=== PATIENT | female | born 1945 | race Two or more races ===

== ENCOUNTER 2025-07-08 11:56 | Inpatient (IN) | payer OTHER ==
[~2025-07-08] VITALS: Ht 121.9 cm; Wt 72.6 kg
--- NOTE | 2025-07-08 12:34 | NUR ---
SE RECIBE PT FEMINA ALERTA Y ORIENTADA, AL MOMENTO PACIENTE REFIERE DOLOR ABDOMINAL, SE LE OBSERVA ABDOMEN DISTENDIDO, SE LE TRACI S/V. AL MOMENTO PACIENTE ES COLOCADO EN CAM 13. PTE EN ESPERA DE EVALUACION MEDICA.
[2025-07-08] MEDS ORDERED: FAMOTIDINE/PF 20 MG/2 ML VIAL IV STA (13:39)
[2025-07-08] MEDS ORDERED: ONDANSETRON HCL 2 MG/ML VIAL IV STA (13:39)
[2025-07-08] MEDS ORDERED: MORPHINE SULFATE 2 MG/ML SYRINGE IV STA ×2 (13:39→22:05)
[2025-07-08] MEDS ORDERED: 0.9 % SODIUM CHLORIDE 1,000 ML IV STA (13:40)
--- NOTE | 2025-07-08 15:16 | NUR ---
PACIENTE FEMINA, SE CANALIZA EN ANTEBRAZO DERECHO CON ANGIO NUM 18, SE ADMINSTRA MORFINA PARA EL DOLOR SHELL ORDEN MEDICA, SE ENTREGA PARA CONTINUAR CON EL TRATAMIENTO.
[2025-07-08] MEDS ORDERED: FAMOTIDINE/PF 20 MG/2 ML VIAL ONE (16:07)
[2025-07-08] MEDS ORDERED: ONDANSETRON HCL 2 MG/ML VIAL ONE (16:07)
--- NOTE | 2025-07-08 16:22 | NUR ---
SE ORIENTA A PACIENTE SOBRE TRATAMIENTO MEDICO, REFIERE ENTENDER. SE REALIZAN MUESTRAS DE LABORATORIO BAJO MEDIDAS ASEPTICAS. SE ADMINISTRAN MEDICAMENTOS SHELL ORDEN MEDICA. SE COOORDINA PRADIP X Y CT. PENDIENTE RE-EVALUACION MEDICA.
[2025-07-08 16:37] LABS: BASO % 0.4 % (0.1-1.2); EOS # 0.00 (0.04-0.54); EOS % 0.0 % (0.7-7.0); LYMPH # 0.78 (1.18-3.74); LYMPH % 9.4 % (19.3-53.1); MEAN PLATELET VOLUME 11.10 fl (9.4-12.4); MONO # 0.49 (0.24-0.82); MONO % 5.9 % (4.7-12.5); NEUT # 6.94 (1.56-6.13); NEUT % 84.1 % (34.0-71.1); RED CELL DISTRIBUTION WIDTH 14.3 % (11.6-14.4)
[2025-07-08 16:46] LABS: ERYTHROCYTE SEDIMENTATION RATE > 130 mm/hr (0-30)
[2025-07-08 16:49] LABS: INR 1.26
[2025-07-08 17:02] LABS: ALT/SGPT 12.0 U/L (12-78); AST/SGOT 19.0 U/L (15-37); BILIRUBIN TOTAL 0.52 mg/dL (0.3-1.2); BUN CREA RATIO 20.0 (7.0-25.0); CREATININE SERUM 1.99 mg/dL (0.55-1.02); GFR 24.3; GLOBULINA 4.9 G/DL (2.4-3.5); GLUCOSE FASTING 132.0 mg/dL (65-100); OSMOLALITY SERUM 293.0 MOSM/KG (275-295)
[2025-07-08 17:10] LABS: BAND MAN 5.0 %; LYMPHOCYTE MAN 12.0 %; MONOCYTE MAN 6.0 %; NEUTROPHILS MAN 76.0 %
[2025-07-08] MEDS ORDERED: MORPHINE SULFATE 4 MG/ML CARTRIDGE IV STA (21:20)
[2025-07-08 22:19] LABS: URINE APPEARANCE Cloudy; URINE BILIRRUBIN Small (NEGATIVE); URINE BLOOD Negative; URINE COLOR Dark Yellow; URINE GLUCOSE Negative (NEGATIVE); URINE KETONE 15 (NEGATIVE); URINE LEUKOCYTE Trace; URINE NITRATE Negative; URINE PROTEIN 30 (NEGATIVE); URINE UROBILINOGEN 1.0 E.U./dl
[2025-07-08] MEDS ORDERED: FAMOTIDINE/PF 20 MG in 0.9 % SODIUM CHLORIDE 8 ML IV PUSH SCH (22:20)
[2025-07-08 22:22] LABS: URINE EPITHELIAL CELLS 73.8 uL (0.0-38.8); URINE RBC 18.9 uL (0.0-20.8); URINE WBC 12.7 uL (0.0-23.2)
[2025-07-08] MEDS ORDERED: CEFTRIAXONE SODIUM 1,000 MG in 0.9 % SODIUM CHLORIDE 100 ML IV SCH (22:22)
[2025-07-08 22:29] LABS: URINE CAST > 21.83 uL (0.0-1.40)
[2025-07-08] MEDS ORDERED: ONDANSETRON HCL 4 MG in 0.9 % SODIUM CHLORIDE 50 ML IV PRN (22:30)
[2025-07-08] MEDS ORDERED: 0.9 % SODIUM CHLORIDE 1,000 ML IV SCH (22:30)
[2025-07-08] MEDS ORDERED: MORPHINE SULFATE 2 MG/ML SYRINGE IV PRN (22:30)
[2025-07-08 22:38] LABS: TYPE CELLS SQUAMOUS; URINE MUCUS SCANT
[2025-07-08 22:40] LABS: URINE CRYSTALS FEW /HPF
[2025-07-09] MEDS ORDERED: FAMOTIDINE/PF 20 MG/2 ML VIAL ONE (00:21)
[2025-07-09] MEDS ORDERED: CEFTRIAXONE SODIUM 1,000 MG VIAL ONE (00:21)
[2025-07-09 03:27] VITALS: BP 109/72; O2SAT 95
[2025-07-09 08:53] VITALS: BP 130/84; O2SAT 95
[2025-07-09] MEDS ORDERED: MORPHINE SULFATE 4 MG/ML CARTRIDGE IV PRN (13:00)
[2025-07-09 15:16] LABS: BASO % 0.2 % (0.1-1.2); EOS # 0.00 (0.04-0.54); EOS % 0.0 % (0.7-7.0); LYMPH # 0.47 (1.18-3.74); LYMPH % 9.3 % (19.3-53.1); MEAN PLATELET VOLUME 11.20 fl (9.4-12.4); MONO # 0.23 (0.24-0.82); MONO % 4.6 % (4.7-12.5); NEUT # 4.15 (1.56-6.13); NEUT % 82.1 % (34.0-71.1); RED CELL DISTRIBUTION WIDTH 14.8 % (11.6-14.4)
[2025-07-09 15:45] LABS: ALT/SGPT 12.0 U/L (12-78); AST/SGOT 28.0 U/L (15-37); BILIRUBIN TOTAL 0.44 mg/dL (0.3-1.2); BUN CREA RATIO 29.0 (7.0-25.0); CREATININE SERUM 1.93 mg/dL (0.55-1.02); GFR 25.17; GLOBULINA 4.2 G/DL (2.4-3.5); GLUCOSE FASTING 156.0 mg/dL (65-100); OSMOLALITY SERUM 296.0 MOSM/KG (275-295)
[2025-07-09 16:00] LABS: COVID-19 AG NEGATIVE (NEGATIVE)
[2025-07-09 16:32] LABS: BAND MAN 3.0 %; EOSINOPHIL MAN 1.0 %; LYMPHOCYTE MAN 13.0 %; MONOCYTE MAN 2.0 %; NEUTROPHILS MAN 81.0 %
[2025-07-09] MEDS ORDERED: METOPROLOL TARTRATE 5MG/5ML AMPUL IV PRN (17:00)
[2025-07-09] MEDS ORDERED: METOPROLOL TARTRATE 5MG/5ML AMPUL IV SCH (17:00)
[2025-07-09 17:15] VITALS: BP 123/76; O2SAT 95
[2025-07-09 23:53] VITALS: BP 112/75; O2SAT 98
[2025-07-10 08:52] VITALS: BP 125/85; O2SAT 98
[2025-07-10 09:28] LABS: BASO % 1.1 % (0.1-1.2); EOS # 0.00 (0.04-0.54); EOS % 0.0 % (0.7-7.0); LYMPH # 1.14 (1.18-3.74); LYMPH % 14.2 % (19.3-53.1); MEAN PLATELET VOLUME 11.80 fl (9.4-12.4); MONO # 0.45 (0.24-0.82); MONO % 5.6 % (4.7-12.5); NEUT # 5.94 (1.56-6.13); NEUT % 74.2 % (34.0-71.1); RED CELL DISTRIBUTION WIDTH 15.0 % (11.6-14.4)
[2025-07-10 09:48] LABS: ALT/SGPT 14.0 U/L (12-78); AST/SGOT 38.0 U/L (15-37); BILIRUBIN TOTAL 0.49 mg/dL (0.3-1.2); BUN CREA RATIO 34.0 (7.0-25.0); CREATININE SERUM 1.95 mg/dL (0.55-1.02); GFR 24.88; GLOBULINA 4.2 G/DL (2.4-3.5); GLUCOSE FASTING 123.0 mg/dL (65-100); OSMOLALITY SERUM 295.0 MOSM/KG (275-295)
[2025-07-10 11:46] LABS: BAND MAN 25.0 %; LYMPHOCYTE MAN 12.0 %; MONOCYTE MAN 9.0 %; NEUTROPHILS MAN 53.0 %
[2025-07-10 16:51] VITALS: BP 128/81; O2SAT 98
[2025-07-11 00:40] VITALS: BP 131/76; O2SAT 95
[2025-07-11 08:00] VITALS: BP 149/92; O2SAT 91
[2025-07-11] MEDS ORDERED: METOPROLOL SUCCINATE 25 MG TAB.SR.24H PO NR (12:00)
[2025-07-11] MEDS ORDERED: METOPROLOL SUCCINATE 25 MG TAB.SR.24H PO STA (12:25)
[2025-07-11] MEDS ORDERED: METRONIDAZOLE/SODIUM CHLORIDE 500 MG/100 ML PIGGYBACK IV SCH (13:15)
[2025-07-11] MEDS ORDERED: CEFAZOLIN SODIUM 1,000 MG VIAL IV SCH (13:15)
[2025-07-11 16:40] VITALS: BP 143/85; O2SAT 95
[2025-07-11 16:59] LABS: BASO % 0.5 % (0.1-1.2); EOS # 0.00 (0.04-0.54); EOS % 0.0 % (0.7-7.0); LYMPH # 1.52 (1.18-3.74); LYMPH % 6.9 % (19.3-53.1); MEAN PLATELET VOLUME 11.00 fl (9.4-12.4); MONO # 1.03 (0.24-0.82); MONO % 4.7 % (4.7-12.5); NEUT # 17.86 (1.56-6.13); NEUT % 81.2 % (34.0-71.1); RED CELL DISTRIBUTION WIDTH 14.9 % (11.6-14.4)
[2025-07-11] MEDS ORDERED: METOPROLOL SUCCINATE 25 MG TAB.SR.24H PO SCH (17:00)
[2025-07-11] MEDS ORDERED: AMINO ACIDS/PROTEIN HYDROLYS 30 ML BLIST.PACK PO SCH (17:00)
[2025-07-11] MEDS ORDERED: RINGERS SOLUTION,LACTATED 1,000 ML IV SCH (20:45)
[2025-07-11] MEDS ORDERED: MORPHINE SULFATE 4 MG/ML CARTRIDGE IV PRN (20:45)
[2025-07-11] MEDS ORDERED: THROMBIN,HU/FIBRINOGEN/CALCIUM 10 ML SYRINGE TOP ONE (21:15)
[2025-07-11] MEDS ORDERED: PIPERACILLIN/TAZOBACTAM SODIUM 4.5 GM VIAL IV ONE (22:45)
[2025-07-11 23:46] LABS: BASO % 0.1 % (0.1-1.2); EOS # 0.00 (0.04-0.54); EOS % 0.0 % (0.7-7.0); LYMPH # 1.29 (1.18-3.74); LYMPH % 6.9 % (19.3-53.1); MEAN PLATELET VOLUME 11.20 fl (9.4-12.4); MONO # 0.58 (0.24-0.82); MONO % 3.1 % (4.7-12.5); NEUT # 15.55 (1.56-6.13); NEUT % 82.9 % (34.0-71.1); RED CELL DISTRIBUTION WIDTH 15.3 % (11.6-14.4)
[2025-07-12] MEDS ORDERED: KETOROLAC TROMETHAMINE 30 MG VIAL IM SCH
[2025-07-12 00:10] LABS: BUN CREA RATIO 51.0 (7.0-25.0); CREATININE SERUM 1.23 mg/dL (0.55-1.02); GFR 42.34; GLUCOSE FASTING 128.0 mg/dL (65-100); OSMOLALITY SERUM 303.0 MOSM/KG (275-295)
[2025-07-12] MEDS ORDERED: METRONIDAZOLE/SODIUM CHLORIDE 500 MG/100 ML PIGGYBACK IV SCH (01:00)
[2025-07-12] MEDS ORDERED: PIPERACILLIN/TAZOBACTAM SODIUM 3.375 GM in DEXTROSE 5 % IN WATER 100 ML IV SCH (01:00)
[2025-07-12] MEDS ORDERED: CEFAZOLIN SODIUM 1,000 MG VIAL IV SCH (01:00)
[2025-07-12 06:41] LABS: BUN CREA RATIO 44.0 (7.0-25.0); CREATININE SERUM 1.44 mg/dL (0.55-1.02); GFR 35.3; GLUCOSE FASTING 119.0 mg/dL (65-100); OSMOLALITY SERUM 306.0 MOSM/KG (275-295)
[2025-07-12 06:59] LABS: BASO % 0.6 % (0.1-1.2); EOS # 0.00 (0.04-0.54); EOS % 0.0 % (0.7-7.0); LYMPH # 0.91 (1.18-3.74); LYMPH % 4.3 % (19.3-53.1); MEAN PLATELET VOLUME 11.00 fl (9.4-12.4); MONO # 0.92 (0.24-0.82); MONO % 4.4 % (4.7-12.5); NEUT # 17.93 (1.56-6.13); NEUT % 84.9 % (34.0-71.1); RED CELL DISTRIBUTION WIDTH 15.5 % (11.6-14.4)
[2025-07-12 08:32] LABS: BAND MAN 11.0 %; LYMPHOCYTE MAN 6.0 %; METAMYELOCYTE 1.0 %; MONOCYTE MAN 10.0 %; NEUTROPHILS MAN 71.0 %
[2025-07-12] MEDS ORDERED: ENOXAPARIN SODIUM 40 MG/0.4 ML SYRINGE SUBCUTANEO SCH (09:00)
[2025-07-12 10:00] VITALS: BP 107/66; O2SAT 97
[2025-07-12 12:07] LABS: CA 125 39.1 U/mL (0.0-38.1); CA 19-9 10.0 U/mL (0-35)
[2025-07-12] MEDS ORDERED: SODIUM POLYSTYRENE SULFONATE 30G/8 TSP PO SCH (13:00)
[2025-07-12 16:05] VITALS: BP 104/68; O2SAT 98
[2025-07-12 20:26] LABS: BASO % 0.1 % (0.1-1.2); EOS # 0.00 (0.04-0.54); EOS % 0.0 % (0.7-7.0); LYMPH # 1.60 (1.18-3.74); LYMPH % 6.7 % (19.3-53.1); MEAN PLATELET VOLUME 10.70 fl (9.4-12.4); MONO # 1.47 (0.24-0.82); MONO % 6.2 % (4.7-12.5); NEUT # 19.31 (1.56-6.13); NEUT % 80.8 % (34.0-71.1); RED CELL DISTRIBUTION WIDTH 15.8 % (11.6-14.4)
[2025-07-12 21:37] LABS: BAND MAN 1.0 %; NEUTROPHILS MAN 81.0 %
[2025-07-12 21:38] LABS: LYMPHOCYTE MAN 11.0 %
[2025-07-13 00:30] VITALS: BP 110/64; O2SAT 98
[2025-07-13] MEDS ORDERED: ENOXAPARIN SODIUM 30 MG/0.3 ML SYRINGE SUBCUTANEO SCH (09:00)
[2025-07-13 09:26] VITALS: BP 111/66; O2SAT 98
[2025-07-13 11:54] LABS: BASO % 0.3 % (0.1-1.2); EOS # 0.00 (0.04-0.54); EOS % 0.0 % (0.7-7.0); LYMPH # 1.52 (1.18-3.74); LYMPH % 6.5 % (19.3-53.1); MEAN PLATELET VOLUME 10.50 fl (9.4-12.4); MONO # 1.41 (0.24-0.82); MONO % 6.1 % (4.7-12.5); NEUT # 19.23 (1.56-6.13); NEUT % 82.8 % (34.0-71.1); RED CELL DISTRIBUTION WIDTH 16.0 % (11.6-14.4)
[2025-07-13 12:21] LABS: BAND MAN 3.0 %; EOSINOPHIL MAN 1.0 %; LYMPHOCYTE MAN 5.0 %; MONOCYTE MAN 1.0 %; MYELOCYTE 5.0 %; NEUTROPHILS MAN 82.0 %
[2025-07-13 12:31] LABS: ALT/SGPT 11.0 U/L (12-78); AST/SGOT 23.0 U/L (15-37); BILIRUBIN TOTAL 1.06 mg/dL (0.3-1.2); BUN CREA RATIO 34.0 (7.0-25.0); CREATININE SERUM 2.09 mg/dL (0.55-1.02); GFR 22.96; GLOBULINA 3.3 G/DL (2.4-3.5); GLUCOSE FASTING 108.0 mg/dL (65-100); OSMOLALITY SERUM 314.0 MOSM/KG (275-295)
[2025-07-13 16:00] VITALS: BP 101/61; O2SAT 99
[2025-07-13 20:16] LABS: BASO % 0.1 % (0.1-1.2); EOS # 0.00 (0.04-0.54); EOS % 0.0 % (0.7-7.0); LYMPH # 1.40 (1.18-3.74); LYMPH % 6.0 % (19.3-53.1); MEAN PLATELET VOLUME 10.10 fl (9.4-12.4); MONO # 1.10 (0.24-0.82); MONO % 4.7 % (4.7-12.5); NEUT # 19.69 (1.56-6.13); NEUT % 84.9 % (34.0-71.1); RED CELL DISTRIBUTION WIDTH 15.5 % (11.6-14.4)
[2025-07-13 20:52] LABS: BAND MAN 8.0 %; BASOPHIL MAN 0.0 %; EOSINOPHIL MAN 0.0 %; LYMPHOCYTE MAN 0.0 %; METAMYELOCYTE 11.0 %; MONOCYTE MAN 1.0 %; MYELOCYTE 2.0 %; NEUTROPHILS MAN 75.0 %
[2025-07-14 01:19] VITALS: BP 114/72; O2SAT 99
[2025-07-14 08:00] VITALS: BP 111/62; O2SAT 99
[2025-07-14 08:10] LABS: BASO % 0.4 % (0.1-1.2); EOS # 0.01 (0.04-0.54); EOS % 0.0 % (0.7-7.0); LYMPH # 1.48 (1.18-3.74); LYMPH % 6.6 % (19.3-53.1); MEAN PLATELET VOLUME 10.80 fl (9.4-12.4); MONO # 1.09 (0.24-0.82); MONO % 4.9 % (4.7-12.5); NEUT # 18.93 (1.56-6.13); NEUT % 84.4 % (34.0-71.1); RED CELL DISTRIBUTION WIDTH 15.9 % (11.6-14.4)
[2025-07-14 09:00] LABS: ALT/SGPT 9.0 U/L (12-78); AST/SGOT 21.0 U/L (15-37); BILIRUBIN TOTAL 1.22 mg/dL (0.3-1.2); BUN CREA RATIO 33.0 (7.0-25.0); CREATININE SERUM 2.21 mg/dL (0.55-1.02); GFR 21.53; GLOBULINA 3.8 G/DL (2.4-3.5); GLUCOSE FASTING 96.0 mg/dL (65-100); OSMOLALITY SERUM 316.0 MOSM/KG (275-295)
[2025-07-14] MEDS ORDERED: METOPROLOL SUCCINATE 25 MG TAB.SR.24H PO SCH (09:00)
[2025-07-14 09:25] LABS: BAND MAN 1.0 %; LYMPHOCYTE MAN 3.0 %; MONOCYTE MAN 2.0 %; NEUTROPHILS MAN 92.0 %
[2025-07-14] MEDS ORDERED: PIPERACILLIN/TAZOBACTAM SODIUM 4.5 GM in DEXTROSE 5 % IN WATER 100 ML IV SCH ×2 (09:30→21:00)
[2025-07-14] MEDS ORDERED: SODIUM POLYSTYRENE SULFONATE 15 G/4 TSP TSP PO SCH (10:20)
[2025-07-14] MEDS ORDERED: DEXTROSE 5 % IN WATER 1,000 ML IV SCH (10:30)
[2025-07-14] MEDS ORDERED: SODIUM CHLORIDE 0.45 % 1,000 ML IV SCH (10:30)
[2025-07-14 16:53] VITALS: BP 119/73; O2SAT 99
[2025-07-15] VITALS: BP 117/63; O2SAT 99
[2025-07-15 06:52] LABS: BASO % 0.2 % (0.1-1.2); EOS # 0.03 (0.04-0.54); EOS % 0.2 % (0.7-7.0); LYMPH # 1.04 (1.18-3.74); LYMPH % 6.5 % (19.3-53.1); MEAN PLATELET VOLUME 10.60 fl (9.4-12.4); MONO # 0.79 (0.24-0.82); MONO % 4.9 % (4.7-12.5); NEUT # 13.74 (1.56-6.13); NEUT % 85.6 % (34.0-71.1); RED CELL DISTRIBUTION WIDTH 16.7 % (11.6-14.4)
[2025-07-15 07:35] LABS: BUN CREA RATIO 36.0 (7.0-25.0); CREATININE SERUM 2.01 mg/dL (0.55-1.02); GFR 24.02; GLUCOSE FASTING 133.0 mg/dL (65-100); OSMOLALITY SERUM 316.0 MOSM/KG (275-295)
[2025-07-15 08:00] VITALS: BP 116/71; O2SAT 95
[2025-07-15] MEDS ORDERED: ENOXAPARIN SODIUM 40 MG/0.4 ML SYRINGE SUBCUTANEO NR (11:00)
[2025-07-15] MEDS ORDERED: SIMETHICONE 125 MG CAPSULE PO SCH (13:00)
[2025-07-15] MEDS ORDERED: TRAMADOL HCL 50 MG TABLET PO SCH (14:00)
[2025-07-15 16:30] VITALS: BP 144/74; O2SAT 100
[2025-07-16 00:39] VITALS: BP 134/76; O2SAT 95
[2025-07-16 06:46] LABS: ALT/SGPT 7.0 U/L (12-78); AST/SGOT 20.0 U/L (15-37); BILIRUBIN TOTAL 1.31 mg/dL (0.3-1.2); BUN CREA RATIO 37.0 (7.0-25.0); CREATININE SERUM 1.63 mg/dL (0.55-1.02); GFR 30.59; GLOBULINA 4.0 G/DL (2.4-3.5); GLUCOSE FASTING 123.0 mg/dL (65-100); OSMOLALITY SERUM 314.0 MOSM/KG (275-295)
[2025-07-16 07:27] LABS: BASO % 0.1 % (0.1-1.2); EOS # 0.00 (0.04-0.54); EOS % 0.0 % (0.7-7.0); LYMPH # 0.83 (1.18-3.74); LYMPH % 3.7 % (19.3-53.1); MEAN PLATELET VOLUME 10.70 fl (9.4-12.4); MONO # 0.78 (0.24-0.82); MONO % 3.4 % (4.7-12.5); NEUT # 20.83 (1.56-6.13); NEUT % 91.7 % (34.0-71.1); RED CELL DISTRIBUTION WIDTH 16.8 % (11.6-14.4)
[2025-07-16 08:56] VITALS: BP 157/83; O2SAT 97
[2025-07-16] MEDS ORDERED: ENOXAPARIN SODIUM 40 MG/0.4 ML SYRINGE SUBCUTANEO SCH (09:00)
[2025-07-16 16:41] VITALS: BP 151/79; O2SAT 100
[2025-07-17 01:03] VITALS: BP 139/71; O2SAT 97
[2025-07-17 08:00] VITALS: BP 131/81; O2SAT 96
[2025-07-17 08:04] LABS: BASO % 0.1 % (0.1-1.2); EOS # 0.01 (0.04-0.54); EOS % 0.0 % (0.7-7.0); LYMPH # 0.82 (1.18-3.74); LYMPH % 2.9 % (19.3-53.1); MEAN PLATELET VOLUME 10.70 fl (9.4-12.4); MONO # 1.35 (0.24-0.82); MONO % 4.7 % (4.7-12.5); NEUT # 25.83 (1.56-6.13); NEUT % 91.0 % (34.0-71.1); RED CELL DISTRIBUTION WIDTH 17.0 % (11.6-14.4)
[2025-07-17 08:20] LABS: ALT/SGPT 10.0 U/L (12-78); AST/SGOT 22.0 U/L (15-37); BILIRUBIN TOTAL 0.94 mg/dL (0.3-1.2); BUN CREA RATIO 33.0 (7.0-25.0); CREATININE SERUM 1.63 mg/dL (0.55-1.02); GFR 30.59; GLOBULINA 4.4 G/DL (2.4-3.5); GLUCOSE FASTING 156.0 mg/dL (65-100); OSMOLALITY SERUM 316.0 MOSM/KG (275-295)
[2025-07-17] MEDS ORDERED: TRAMADOL HCL 50 MG TABLET PO PRN (10:30)
[2025-07-17 16:33] VITALS: BP 115/55; O2SAT 95
[2025-07-18 00:30] VITALS: BP 131/77; O2SAT 95
[2025-07-18 08:00] VITALS: BP 137/78; O2SAT 96
[2025-07-18 08:23] LABS: ALT/SGPT 9.0 U/L (12-78); AST/SGOT 22.0 U/L (15-37); BILIRUBIN TOTAL 0.54 mg/dL (0.3-1.2); BUN CREA RATIO 37.0 (7.0-25.0); CREATININE SERUM 1.45 mg/dL (0.55-1.02); GFR 35.02; GLOBULINA 3.4 G/DL (2.4-3.5); GLUCOSE FASTING 156.0 mg/dL (65-100); OSMOLALITY SERUM 316.0 MOSM/KG (275-295)
[2025-07-18 08:48] LABS: BASO % 0.1 % (0.1-1.2); EOS # 0.00 (0.04-0.54); EOS % 0.0 % (0.7-7.0); LYMPH # 0.63 (1.18-3.74); LYMPH % 2.8 % (19.3-53.1); MEAN PLATELET VOLUME 10.50 fl (9.4-12.4); MONO # 1.54 (0.24-0.82); MONO % 6.9 % (4.7-12.5); NEUT # 19.85 (1.56-6.13); NEUT % 89.0 % (34.0-71.1); RED CELL DISTRIBUTION WIDTH 16.8 % (11.6-14.4)
[2025-07-18] MEDS ORDERED: PANTOPRAZOLE SODIUM 80 MG in 0.9 % SODIUM CHLORIDE 100 ML IV SCH (15:00)
[2025-07-18 16:00] VITALS: BP 114/72; O2SAT 100
[2025-07-18] MEDS ORDERED: FAMOTIDINE/PF 20 MG/2 ML VIAL IV SCH (17:00)
[2025-07-18] MEDS ORDERED: ONDANSETRON HCL 2 MG/ML VIAL IV SCH (18:30)
[2025-07-19] VITALS (8 sets, daily range): BP systolic 109–125; BP diastolic 57–74; O2SAT 99–100
[2025-07-19 10:20] LABS: ob POSITIVE (NEGATIVE)
[2025-07-19] MEDS ORDERED: CEFTRIAXONE SODIUM 2,000 MG in 0.9 % SODIUM CHLORIDE 100 ML IV NR (12:00)
[2025-07-19 14:37] LABS: BASO % 0.1 % (0.1-1.2); EOS # 0.00 (0.04-0.54); EOS % 0.0 % (0.7-7.0); LYMPH # 0.79 (1.18-3.74); LYMPH % 3.8 % (19.3-53.1); MEAN PLATELET VOLUME 10.50 fl (9.4-12.4); MONO # 1.20 (0.24-0.82); MONO % 5.8 % (4.7-12.5); NEUT # 18.43 (1.56-6.13); NEUT % 88.9 % (34.0-71.1); RED CELL DISTRIBUTION WIDTH 16.5 % (11.6-14.4)
[2025-07-19] MEDS ORDERED: MORPHINE SULFATE 2 MG/ML SYRINGE IV PRN (14:45)
[2025-07-19 15:05] LABS: ALT/SGPT 16.0 U/L (12-78); AST/SGOT 38.0 U/L (15-37); BILIRUBIN TOTAL 0.54 mg/dL (0.3-1.2); BUN CREA RATIO 43.0 (7.0-25.0); CREATININE SERUM 1.42 mg/dL (0.55-1.02); GFR 35.87; GLOBULINA 3.3 G/DL (2.4-3.5); GLUCOSE FASTING 169.0 mg/dL (65-100); OSMOLALITY SERUM 328.0 MOSM/KG (275-295)
[2025-07-19] MEDS ORDERED: POTASSIUM CHLORIDE IN WATER 100 ML IV NR (18:30)
[2025-07-20 02:14] LABS: BASO % 0.1 % (0.1-1.2); EOS # 0.00 (0.04-0.54); EOS % 0.0 % (0.7-7.0); LYMPH # 0.95 (1.18-3.74); LYMPH % 4.9 % (19.3-53.1); MEAN PLATELET VOLUME 10.40 fl (9.4-12.4); MONO # 1.61 (0.24-0.82); MONO % 8.3 % (4.7-12.5); NEUT # 16.64 (1.56-6.13); NEUT % 86.2 % (34.0-71.1); RED CELL DISTRIBUTION WIDTH 16.9 % (11.6-14.4)
[2025-07-20 02:39] LABS: ALT/SGPT 13.0 U/L (12-78); AST/SGOT 23.0 U/L (15-37); BILIRUBIN TOTAL 0.45 mg/dL (0.3-1.2); BUN CREA RATIO 39.0 (7.0-25.0); CREATININE SERUM 1.43 mg/dL (0.55-1.02); GFR 35.58; GLOBULINA 3.3 G/DL (2.4-3.5); GLUCOSE FASTING 151.0 mg/dL (65-100)
[2025-07-20 02:49] LABS: OSMOLALITY SERUM 324.0 MOSM/KG (275-295)
[2025-07-20 04:05] VITALS: BP 122/66; O2SAT 100
[2025-07-20] MEDS ORDERED: MAGNESIUM SULFATE IN WATER 2 GM/50 ML PIGGYBAG IV NR (06:30)
[2025-07-20 07:37] VITALS: BP 117/59; O2SAT 100
[2025-07-20] MEDS ORDERED: PANTOPRAZOLE SODIUM 40 MG/VIAL VIAL ONE (08:41)
[2025-07-20] MEDS ORDERED: CEFTRIAXONE SODIUM 2,000 MG in 0.9 % SODIUM CHLORIDE 100 ML IV SCH (09:00)
[2025-07-20] MEDS ORDERED: MORPHINE SULFATE 4 MG/ML VIAL IV PRN (11:00)
[2025-07-20 14:40] LABS: INR 1.26
[2025-07-20 16:24] VITALS: BP 119/60; O2SAT 100
[2025-07-20 20:00] VITALS: BP 124/57; O2SAT 100
[2025-07-20 23:34] VITALS: BP 110/64; O2SAT 100
[2025-07-21 04:00] VITALS: BP 121/53; O2SAT 100
[2025-07-21 04:10] LABS: BASO % 0.1 % (0.1-1.2); EOS # 0.01 (0.04-0.54); EOS % 0.1 % (0.7-7.0); LYMPH # 0.91 (1.18-3.74); LYMPH % 7.5 % (19.3-53.1); MEAN PLATELET VOLUME 10.60 fl (9.4-12.4); MONO # 1.54 (0.24-0.82); NEUT # 9.58 (1.56-6.13); NEUT % 79.1 % (34.0-71.1); RED CELL DISTRIBUTION WIDTH 17.1 % (11.6-14.4)
[2025-07-21 04:12] LABS: MONO % 12.7 % (4.7-12.5)
[2025-07-21 04:32] LABS: ALT/SGPT 9.0 U/L (12-78); AST/SGOT 16.0 U/L (15-37); BILIRUBIN TOTAL 0.47 mg/dL (0.3-1.2); BUN CREA RATIO 33.0 (7.0-25.0); CREATININE SERUM 1.28 mg/dL (0.55-1.02); GFR 40.43; GLOBULINA 3.3 G/DL (2.4-3.5); GLUCOSE FASTING 144.0 mg/dL (65-100)
[2025-07-21 04:49] LABS: OSMOLALITY SERUM 311.0 MOSM/KG (275-295)
[2025-07-21 07:49] VITALS: BP 127/58; O2SAT 100
[2025-07-21] MEDS ORDERED: POTASSIUM CHLORIDE IN WATER 40 MEQ/100 ML PIGGYBAG IV SCH (08:00)
[2025-07-21 12:00] VITALS: BP 133/59; O2SAT 98
[2025-07-21] MEDS ORDERED: POTASSIUM CHLORIDE IN WATER 40 MEQ/100 ML PIGGYBAG IV ONE (12:18)
[2025-07-21 15:12] VITALS: BP 131/63; O2SAT 100
[2025-07-21] MEDS ORDERED: MIDAZOLAM HCL 2 MG/2 ML VIAL IV ONE (17:45)
[2025-07-21 20:00] VITALS: BP 117/61; O2SAT 100
[2025-07-21 23:08] VITALS: BP 115/61; O2SAT 100
[2025-07-22 03:42] LABS: BASO % 0.1 % (0.1-1.2); EOS # 0.01 (0.04-0.54); EOS % 0.1 % (0.7-7.0); LYMPH # 0.85 (1.18-3.74); LYMPH % 7.2 % (19.3-53.1); MEAN PLATELET VOLUME 10.10 fl (9.4-12.4); MONO # 1.66 (0.24-0.82); MONO % 14.0 % (4.7-12.5); NEUT # 9.26 (1.56-6.13); NEUT % 77.8 % (34.0-71.1); RED CELL DISTRIBUTION WIDTH 17.4 % (11.6-14.4)
[2025-07-22 04:00] VITALS: BP 130/66; O2SAT 100
[2025-07-22 06:48] LABS: BASO % 0.1 % (0.1-1.2); EOS # 0.02 (0.04-0.54); EOS % 0.2 % (0.7-7.0); LYMPH # 1.01 (1.18-3.74); LYMPH % 8.6 % (19.3-53.1); MEAN PLATELET VOLUME 10.50 fl (9.4-12.4); MONO # 1.53 (0.24-0.82); NEUT # 9.07 (1.56-6.13); NEUT % 77.0 % (34.0-71.1); RED CELL DISTRIBUTION WIDTH 16.3 % (11.6-14.4)
[2025-07-22 06:53] LABS: MONO % 13.0 % (4.7-12.5)
[2025-07-22] MEDS ORDERED: METOCLOPRAMIDE HCL 10 MG TABLET PO SCH (07:00)
[2025-07-22 07:45] LABS: ALT/SGPT 9.0 U/L (12-78); AST/SGOT 17.0 U/L (15-37); BILIRUBIN TOTAL 0.64 mg/dL (0.3-1.2); BUN CREA RATIO 21.0 (7.0-25.0); CREATININE SERUM 1.13 mg/dL (0.55-1.02); GFR 46.69; GLOBULINA 3.2 G/DL (2.4-3.5); GLUCOSE FASTING 131.0 mg/dL (65-100); OSMOLALITY SERUM 291.0 MOSM/KG (275-295)
[2025-07-22] MEDS ORDERED: PANTOPRAZOLE SODIUM 80 MG in 0.9 % SODIUM CHLORIDE 100 ML IV SCH (08:00)
[2025-07-22] MEDS ORDERED: SODIUM CHLORIDE 0.45 % 1,000 ML IV SCH (08:45)
[2025-07-22] MEDS ORDERED: HYOSCYAMINE SULFATE 0.125 MG TAB.SUBL PO SCH (09:00)
[2025-07-22 12:23] VITALS: BP 135/64; O2SAT 100
[2025-07-22 15:30] VITALS: BP 135/62; O2SAT 100
[2025-07-22 19:50] VITALS: BP 129/66; O2SAT 100
[2025-07-22 20:00] VITALS: BP 129/68; O2SAT 100
[2025-07-22 23:02] VITALS: BP 133/65; O2SAT 100
[2025-07-23 04:00] VITALS: BP 133/65; O2SAT 100
[2025-07-23 08:16] LABS: BASO % 0.2 % (0.1-1.2); EOS # 0.02 (0.04-0.54); EOS % 0.2 % (0.7-7.0); LYMPH # 0.81 (1.18-3.74); LYMPH % 7.2 % (19.3-53.1); MEAN PLATELET VOLUME 10.80 fl (9.4-12.4); MONO # 1.54 (0.24-0.82); NEUT # 8.86 (1.56-6.13); NEUT % 78.3 % (34.0-71.1); RED CELL DISTRIBUTION WIDTH 16.3 % (11.6-14.4)
[2025-07-23 08:20] VITALS: BP 134/66; O2SAT 100
[2025-07-23 08:25] LABS: MONO % 13.6 % (4.7-12.5)
[2025-07-23 09:12] LABS: ALT/SGPT 8.0 U/L (12-78); AST/SGOT 17.0 U/L (15-37); BILIRUBIN TOTAL 0.69 mg/dL (0.3-1.2); BUN CREA RATIO 20.0 (7.0-25.0); CREATININE SERUM 0.89 mg/dL (0.55-1.02); GFR 61.5; GLOBULINA 3.3 G/DL (2.4-3.5); GLUCOSE FASTING 74.0 mg/dL (65-100); OSMOLALITY SERUM 287.0 MOSM/KG (275-295)
[2025-07-23 12:00] VITALS: BP 133/70; O2SAT 96
[2025-07-23 15:25] VITALS: BP 139/73; O2SAT 95
[2025-07-23 20:00] VITALS: BP 135/64; O2SAT 100
[2025-07-23 23:32] VITALS: BP 145/63; O2SAT 97
[2025-07-24 04:00] VITALS: BP 148/66; O2SAT 98
[2025-07-24 07:18] VITALS: BP 148/66; O2SAT 97
[2025-07-24 07:50] LABS: BASO % 0.1 % (0.1-1.2); EOS # 0.01 (0.04-0.54); EOS % 0.1 % (0.7-7.0); LYMPH # 0.88 (1.18-3.74); LYMPH % 7.9 % (19.3-53.1); MEAN PLATELET VOLUME 10.50 fl (9.4-12.4); MONO # 1.25 (0.24-0.82); MONO % 11.2 % (4.7-12.5); NEUT # 9.00 (1.56-6.13); NEUT % 80.3 % (34.0-71.1); RED CELL DISTRIBUTION WIDTH 16.0 % (11.6-14.4)
[2025-07-24 08:38] LABS: ALT/SGPT 7.0 U/L (12-78); AST/SGOT 20.0 U/L (15-37); BILIRUBIN TOTAL 0.62 mg/dL (0.3-1.2); BUN CREA RATIO 23.0 (7.0-25.0); CREATININE SERUM 0.75 mg/dL (0.55-1.02); GFR 74.93; GLOBULINA 3.5 G/DL (2.4-3.5); GLUCOSE FASTING 73.0 mg/dL (65-100); OSMOLALITY SERUM 287.0 MOSM/KG (275-295)
[2025-07-24] MEDS ORDERED: SUCRALFATE 1 G TABLET PO NR (11:30)
[2025-07-24 13:00] VITALS: BP 152/80; O2SAT 100
[2025-07-24] MEDS ORDERED: SUCRALFATE 1 G TABLET PO SCH (17:00)
[2025-07-24 20:00] VITALS: BP 151/71; O2SAT 100
[2025-07-24 23:22] VITALS: BP 161/77; O2SAT 100
[2025-07-25] MEDS ORDERED: SODIUM CL 0.9% 100 ML IV.SOLN IV ONE ×2 (01:48)
[2025-07-25 04:06] VITALS: BP 157/64; O2SAT 100
[2025-07-25 06:43] LABS: BASO % 0.0 % (0.1-1.2); EOS # 0.01 (0.04-0.54); EOS % 0.1 % (0.7-7.0); LYMPH # 0.87 (1.18-3.74); LYMPH % 7.7 % (19.3-53.1); MEAN PLATELET VOLUME 10.20 fl (9.4-12.4); MONO # 1.44 (0.24-0.82); NEUT # 8.90 (1.56-6.13); NEUT % 79.0 % (34.0-71.1); RED CELL DISTRIBUTION WIDTH 16.0 % (11.6-14.4)
[2025-07-25 06:56] LABS: MONO % 12.8 % (4.7-12.5)
[2025-07-25 07:08] LABS: ALT/SGPT 9.0 U/L (12-78); AST/SGOT 22.0 U/L (15-37); BILIRUBIN TOTAL 0.62 mg/dL (0.3-1.2); BUN CREA RATIO 22.0 (7.0-25.0); CREATININE SERUM 0.68 mg/dL (0.55-1.02); GFR 83.9; GLOBULINA 3.4 G/DL (2.4-3.5); GLUCOSE FASTING 94.0 mg/dL (65-100); OSMOLALITY SERUM 289.0 MOSM/KG (275-295)
[2025-07-25 07:23] VITALS: BP 164/65; O2SAT 98
[2025-07-25] MEDS ORDERED: MAGNESIUM SULFATE IN WATER 2 GM/50 ML PIGGYBAG IV NR (08:00)
[2025-07-25] MEDS ORDERED: POTASSIUM CHLORIDE IN WATER 40 MEQ/100 ML PIGGYBAG IV SCH (09:00)
[2025-07-25] MEDS ORDERED: POTASSIUM CHLORIDE 10 MEQ CAPSULE PO NR (11:00)
[2025-07-25 12:00] VITALS: BP 122/62; O2SAT 100
[2025-07-25 15:26] VITALS: BP 147/73; O2SAT 100
[2025-07-25] MEDS ORDERED: PANTOPRAZOLE SODIUM 40 MG/VIAL VIAL IV SCH (17:00)
[2025-07-26 00:48] VITALS: BP 131/67; O2SAT 98
[2025-07-26 06:43] LABS: BASO % 0.1 % (0.1-1.2); EOS # 0.01 (0.04-0.54); EOS % 0.1 % (0.7-7.0); LYMPH # 0.87 (1.18-3.74); LYMPH % 8.7 % (19.3-53.1); MEAN PLATELET VOLUME 10.40 fl (9.4-12.4); MONO # 1.13 (0.24-0.82); MONO % 11.3 % (4.7-12.5); NEUT # 7.92 (1.56-6.13); NEUT % 79.6 % (34.0-71.1); RED CELL DISTRIBUTION WIDTH 15.9 % (11.6-14.4)
[2025-07-26 07:10] LABS: ERYTHROCYTE SEDIMENTATION RATE 53 mm/hr (0-30)
[2025-07-26 08:02] LABS: ALT/SGPT 10.0 U/L (12-78); AST/SGOT 19.0 U/L (15-37); BILIRUBIN TOTAL 0.59 mg/dL (0.3-1.2); BUN CREA RATIO 24.0 (7.0-25.0); CREATININE SERUM 0.63 mg/dL (0.55-1.02); GFR 91.63; GLOBULINA 3.5 G/DL (2.4-3.5); GLUCOSE FASTING 112.0 mg/dL (65-100); OSMOLALITY SERUM 294.0 MOSM/KG (275-295)
[2025-07-26 09:03] VITALS: BP 152/79; O2SAT 100
[2025-07-26] MEDS ORDERED: POTASSIUM CHLORIDE 20MEQ/100ML H2O PB IV NR (13:00)
[2025-07-26 18:03] VITALS: BP 146/67; O2SAT 100
[2025-07-27 03:03] VITALS: BP 138/66; O2SAT 97
[2025-07-27 09:14] VITALS: BP 138/70; O2SAT 96
[2025-07-27] MEDS ORDERED: POTASSIUM CHLORIDE 10 MEQ CAPSULE PO NR (13:00)
[2025-07-27 17:57] VITALS: BP 127/71
[2025-07-28 03:08] VITALS: BP 123/68; O2SAT 97
[2025-07-28 06:50] LABS: BUN CREA RATIO 24.0 (7.0-25.0); CREATININE SERUM 0.58 mg/dL (0.55-1.02); GFR 100.8; GLUCOSE FASTING 127.0 mg/dL (65-100)
[2025-07-28 07:58] LABS: OSMOLALITY SERUM 300.0 MOSM/KG (275-295)
[2025-07-28] MEDS ORDERED: DEXTROSE 5 % IN WATER 1,000 ML IV SCH (08:15)
[2025-07-28] MEDS ORDERED: POTASSIUM CHLORIDE 10 MEQ CAPSULE PO SCH (09:00)
[2025-07-28 09:18] VITALS: BP 128/69; O2SAT 99
[2025-07-28 21:54] VITALS: BP 117/77
[2025-07-29 02:57] VITALS: BP 125/74; O2SAT 95
[2025-07-29 06:22] LABS: BASO % 0.3 % (0.1-1.2); EOS # 0.03 (0.04-0.54); EOS % 0.5 % (0.7-7.0); LYMPH # 0.90 (1.18-3.74); LYMPH % 14.4 % (19.3-53.1); MEAN PLATELET VOLUME 11.60 fl (9.4-12.4); MONO # 1.24 (0.24-0.82); NEUT # 4.02 (1.56-6.13); NEUT % 64.4 % (34.0-71.1); RED CELL DISTRIBUTION WIDTH 17.3 % (11.6-14.4)
[2025-07-29 07:34] LABS: LYMPHOCYTE MAN 13.0 %; MONO % 19.8 % (4.7-12.5); MONOCYTE MAN 20.0 %; NEUTROPHILS MAN 65.0 %
[2025-07-29 10:11] VITALS: BP 136/74; O2SAT 98
[2025-07-29] MEDS ORDERED: MAGNESIUM SULFATE/D5W 100 ML IV NR (11:00)
[2025-07-29] MEDS ORDERED: POTASSIUM CHLORIDE 20MEQ/100ML H2O PB IV SCH (13:00)
[2025-07-29 15:25] LABS: BUN CREA RATIO 20.0 (7.0-25.0); CREATININE SERUM 0.7 mg/dL (0.55-1.02); GFR 81.14; GLUCOSE FASTING 168.0 mg/dL (65-100); OSMOLALITY SERUM 297.0 MOSM/KG (275-295)
[2025-07-29 21:23] VITALS: BP 123/67
[2025-07-30 00:57] VITALS: BP 122/73; O2SAT 93
[2025-07-30 07:55] LABS: ALT/SGPT 10.0 U/L (12-78); AST/SGOT 28.0 U/L (15-37); BILIRUBIN TOTAL 0.47 mg/dL (0.3-1.2); BUN CREA RATIO 22.0 (7.0-25.0); CREATININE SERUM 0.54 mg/dL (0.55-1.02); GFR 109.47; GLOBULINA 3.4 G/DL (2.4-3.5); GLUCOSE FASTING 144.0 mg/dL (65-100); OSMOLALITY SERUM 289.0 MOSM/KG (275-295)
[2025-07-30 10:20] VITALS: BP 125/77; O2SAT 98
[2025-07-30 16:41] VITALS: O2SAT 96
[2025-07-30 17:39] VITALS: BP 127/72; O2SAT 96
[2025-07-31 02:26] VITALS: BP 134/72; O2SAT 96
[2025-07-31 09:46] VITALS: BP 132/84; O2SAT 97
[2025-07-31 18:15] VITALS: BP 144/75; O2SAT 96
[2025-08-01 01:01] VITALS: BP 136/82; O2SAT 95
[2025-08-01 08:15] VITALS: BP 146/76; O2SAT 99
[2025-08-01] MEDS ORDERED: ONDANSETRON HCL 2 MG/ML VIAL IV PRN (14:15)
[2025-08-01] MEDS ORDERED: PANTOPRAZOLE SODIUM 40 MG/VIAL VIAL IV PUSH SCH (17:00)
[2025-08-01 21:22] VITALS: BP 144/86
[2025-08-02 00:44] VITALS: BP 145/78; O2SAT 100
[2025-08-02 08:05] LABS: BASO % 0.3 % (0.1-1.2); EOS # 0.02 (0.04-0.54); EOS % 0.3 % (0.7-7.0); LYMPH # 1.02 (1.18-3.74); LYMPH % 15.5 % (19.3-53.1); MEAN PLATELET VOLUME 10.90 fl (9.4-12.4); MONO # 1.15 (0.24-0.82); NEUT # 4.34 (1.56-6.13); NEUT % 65.7 % (34.0-71.1); RED CELL DISTRIBUTION WIDTH 15.3 % (11.6-14.4)
[2025-08-02 08:20] LABS: MONO % 17.4 % (4.7-12.5)
[2025-08-02 08:46] LABS: BUN CREA RATIO 17.0 (7.0-25.0); CREATININE SERUM 0.46 mg/dL (0.55-1.02); GFR 131.72; GLUCOSE FASTING 131.0 mg/dL (65-100); OSMOLALITY SERUM 278.0 MOSM/KG (275-295)
[2025-08-02 10:34] VITALS: BP 128/77; O2SAT 98
[2025-08-02] MEDS ORDERED: POTASSIUM CHLORIDE 10 MEQ CAPSULE PO SCH (13:00)
[2025-08-02] MEDS ORDERED: POTASSIUM CHLORIDE 20MEQ/100ML H2O PB IV NR (16:00)
[2025-08-02 18:59] VITALS: BP 123/73
[2025-08-03 01:39] VITALS: BP 136/77; O2SAT 98
[2025-08-03 08:50] VITALS: BP 134/84; O2SAT 96
[2025-08-03 08:59] LABS: BUN CREA RATIO 20.0 (7.0-25.0); CREATININE SERUM 0.51 mg/dL (0.55-1.02); GFR 116.93; GLUCOSE FASTING 123.0 mg/dL (65-100); OSMOLALITY SERUM 280.0 MOSM/KG (275-295)
[2025-08-03] MEDS ORDERED: MIDAZOLAM HCL 2 MG/2 ML VIAL IV PUSH ONE (16:45)
[2025-08-03] MEDS ORDERED: fentaNYL CITRATE 50 MCG/ML AMPUL IV PUSH ONE (16:45)
[2025-08-03] MEDS ORDERED: MEROPENEM 500 MG/VIAL VIAL IV SCH (21:21)
[2025-08-03 21:44] VITALS: BP 129/85
[2025-08-04 01:40] VITALS: BP 117/76; O2SAT 97
[2025-08-04 08:42] VITALS: BP 148/84; O2SAT 99
[2025-08-04 14:57] LABS: BASO % 0.2 % (0.1-1.2); EOS # 0.00 (0.04-0.54); EOS % 0.0 % (0.7-7.0); LYMPH # 0.89 (1.18-3.74); LYMPH % 10.1 % (19.3-53.1); MEAN PLATELET VOLUME 10.60 fl (9.4-12.4); MONO # 1.02 (0.24-0.82); MONO % 11.5 % (4.7-12.5); NEUT # 6.87 (1.56-6.13); NEUT % 77.7 % (34.0-71.1); RED CELL DISTRIBUTION WIDTH 15.4 % (11.6-14.4)
[2025-08-04 15:20] LABS: BUN CREA RATIO 24.0 (7.0-25.0); CREATININE SERUM 0.51 mg/dL (0.55-1.02); GFR 116.93; GLUCOSE FASTING 138.0 mg/dL (65-100); OSMOLALITY SERUM 285.0 MOSM/KG (275-295)
[2025-08-04 18:23] VITALS: BP 140/75; O2SAT 100
[2025-08-04 19:15] VITALS: O2SAT 99
[2025-08-05 00:36] VITALS: O2SAT 97
[2025-08-05 01:24] VITALS: BP 143/81; O2SAT 98
[2025-08-05 05:14] VITALS: O2SAT 100
[2025-08-05 08:42] VITALS: BP 140/75; O2SAT 99
[2025-08-05 10:05] VITALS: O2SAT 100
[2025-08-05 10:14] LABS: BASO % 0.3 % (0.1-1.2); EOS # 0.01 (0.04-0.54); EOS % 0.1 % (0.7-7.0); LYMPH # 1.17 (1.18-3.74); LYMPH % 15.9 % (19.3-53.1); MEAN PLATELET VOLUME 10.80 fl (9.4-12.4); MONO # 1.00 (0.24-0.82); NEUT # 5.14 (1.56-6.13); NEUT % 69.8 % (34.0-71.1); RED CELL DISTRIBUTION WIDTH 15.0 % (11.6-14.4)
[2025-08-05 10:15] LABS: MONO % 13.6 % (4.7-12.5)
[2025-08-05 10:53] LABS: ALT/SGPT 9.0 U/L (12-78); AST/SGOT 23.0 U/L (15-37); BILIRUBIN TOTAL 0.46 mg/dL (0.3-1.2); BUN CREA RATIO 28.0 (7.0-25.0); CREATININE SERUM 0.46 mg/dL (0.55-1.02); GFR 131.72; GLOBULINA 3.9 G/DL (2.4-3.5); GLUCOSE FASTING 135.0 mg/dL (65-100); OSMOLALITY SERUM 285.0 MOSM/KG (275-295)
[2025-08-05 14:47] LABS: BUN CREA RATIO 32.0 (7.0-25.0); CHOL HDL RATIO 4.5 (0-5.0); CREATININE SERUM 0.41 mg/dL (0.55-1.02); GFR 150.42; GLUCOSE FASTING 148.0 mg/dL (65-100); HDL 35.0 mg/dl (40-60); LDL 94.0 mg/dl (0-130); OSMOLALITY SERUM 284.0 MOSM/KG (275-295); VLDL 27.0 (0-39)
[2025-08-05] MEDS ORDERED: AA 2.36%/D6.8W/FAT/E-LYTES NO9 1,440 ML IV SCH (17:00)
[2025-08-05 18:05] VITALS: BP 132/76; O2SAT 100
[2025-08-06] VITALS (8 sets, daily range): BP systolic 121–146; BP diastolic 77–83; O2SAT 98–100
[2025-08-06] MEDS ORDERED: SODIUM CHLORIDE 0.45 % 1,000 ML IV SCH (06:15)
[2025-08-06] MEDS ORDERED: ACETAZOLAMIDE SODIUM 500 MG VIAL IV SCH (09:00)
[2025-08-06] MEDS ORDERED: POTASSIUM CHLORIDE IN WATER 100 ML IV NR (09:00)
[2025-08-07] VITALS (7 sets, daily range): BP systolic 124–144; BP diastolic 79–89; O2SAT 97–100
[2025-08-07 07:46] LABS: BASO % 0.4 % (0.1-1.2); EOS # 0.02 (0.04-0.54); EOS % 0.3 % (0.7-7.0); LYMPH # 1.49 (1.18-3.74); LYMPH % 19.5 % (19.3-53.1); MEAN PLATELET VOLUME 11.60 fl (9.4-12.4); MONO # 0.92 (0.24-0.82); MONO % 12.0 % (4.7-12.5); NEUT # 5.16 (1.56-6.13); NEUT % 67.5 % (34.0-71.1); RED CELL DISTRIBUTION WIDTH 15.0 % (11.6-14.4)
[2025-08-07 08:11] LABS: BUN CREA RATIO 51.0 (7.0-25.0); CREATININE SERUM 0.43 mg/dL (0.55-1.02); GFR 142.38; GLUCOSE FASTING 146.0 mg/dL (65-100); OSMOLALITY SERUM 284.0 MOSM/KG (275-295)
[2025-08-07 15:26] LABS: URINE APPEARANCE Cloudy; URINE BILIRRUBIN Negative (NEGATIVE); URINE BLOOD Negative; URINE COLOR Yellow; URINE GLUCOSE Negative (NEGATIVE); URINE KETONE Negative (NEGATIVE); URINE LEUKOCYTE Trace; URINE NITRATE Negative; URINE PROTEIN Trace (NEGATIVE); URINE UROBILINOGEN 0.2 E.U./dl
[2025-08-07 15:30] LABS: URINE BACTERIA 24.0 uL (0.0-1933); URINE RBC 158.6 uL (0.0-20.8); URINE WBC 9.1 uL (0.0-23.2)
[2025-08-07 16:04] LABS: URINE CAST 0.00 uL (0.0-1.40); URINE CRYSTALS FEW /HPF; URINE EPITHELIAL CELLS 0.1 uL (0.0-38.8)
[2025-08-08 01:00] VITALS: O2SAT 100
[2025-08-08 02:32] VITALS: BP 164/95; O2SAT 100
[2025-08-08 04:00] VITALS: O2SAT 100
[2025-08-08 06:11] LABS: BASO % 0.3 % (0.1-1.2); EOS # 0.01 (0.04-0.54); EOS % 0.1 % (0.7-7.0); LYMPH # 2.16 (1.18-3.74); LYMPH % 21.1 % (19.3-53.1); MEAN PLATELET VOLUME 11.70 fl (9.4-12.4); MONO # 1.07 (0.24-0.82); MONO % 10.5 % (4.7-12.5); NEUT # 6.91 (1.56-6.13); NEUT % 67.6 % (34.0-71.1); RED CELL DISTRIBUTION WIDTH 14.5 % (11.6-14.4)
[2025-08-08 07:04] LABS: INR 1.09
[2025-08-08 07:20] LABS: ALT/SGPT 14.0 U/L (12-78); AST/SGOT 29.0 U/L (15-37); BILIRUBIN TOTAL 0.58 mg/dL (0.3-1.2); BILIRUBIN,CONJUGATED 0.11 mg/dL (0.0-0.2); BUN CREA RATIO 60.0 (7.0-25.0); CHOL HDL RATIO 6.8 (0-5.0); CREATININE SERUM 0.4 mg/dL (0.55-1.02); GFR 154.77; GLOBULINA 4.5 G/DL (2.4-3.5); GLUCOSE FASTING 141.0 mg/dL (65-100); HDL 27.0 mg/dl (40-60); LDL 97.0 mg/dl (0-130); OSMOLALITY SERUM 277.0 MOSM/KG (275-295); VLDL 60.0 (0-39)
[2025-08-08] MEDS ORDERED: ENALAPRILAT DIHYDRATE 1.25 MG/ML VIAL IV ONE (09:01)
[2025-08-08 09:09] VITALS: O2SAT 99
[2025-08-08] MEDS ORDERED: ENALAPRILAT DIHYDRATE 1.25 MG/ML VIAL IV NR (09:30)
[2025-08-08 10:15] LABS: BASO % 0.3 % (0.1-1.2); EOS # 0.02 (0.04-0.54); EOS % 0.1 % (0.7-7.0); LYMPH # 2.57 (1.18-3.74); LYMPH % 18.5 % (19.3-53.1); MEAN PLATELET VOLUME 10.70 fl (9.4-12.4); MONO # 1.29 (0.24-0.82); MONO % 9.3 % (4.7-12.5); NEUT # 9.90 (1.56-6.13); NEUT % 71.4 % (34.0-71.1); RED CELL DISTRIBUTION WIDTH 14.4 % (11.6-14.4)
[2025-08-08 11:43] LABS: ALT/SGPT 17.0 U/L (12-78); AST/SGOT 35.0 U/L (15-37); BILIRUBIN TOTAL 0.65 mg/dL (0.3-1.2); BUN CREA RATIO 39.0 (7.0-25.0); CREATININE SERUM 0.59 mg/dL (0.55-1.02); GFR 98.83; GLOBULINA 5.2 G/DL (2.4-3.5); GLUCOSE FASTING 169.0 mg/dL (65-100); OSMOLALITY SERUM 276.0 MOSM/KG (275-295)
[2025-08-08 12:28] VITALS: O2SAT 0
[2025-08-08] MEDS ORDERED: EPINEPHRINE HCL/PF 1 MG/ML AMPUL IV PUSH SCH (12:45)
== END 2025-08-08 15:04 | disposition expired | DRG 736 ==
LOC: ER 11:57 → ICU 23:57 → SURH 23:57 → ICU 07-19 01:04 → MEDJ 07-25 18:45
PROVIDERS: General Practice; Internal Medicine; Internal Medicine Infectious Disease; Internal Medicine Nephrology; Obstetrics & Gynecology Gynecologic Oncology; Student in an Organized Health Care Education/Training Program; ADMIT Internal Medicine; ATTEND Internal Medicine
PROC: BW21ZZZ Computerized Tomography (CT Scan) of Abdomen and Pelvis (ICD-10-PCS; 2025-07-08)
PROC: 3E0F7SF Introduction of Other Gas into Respiratory Tract, Via Natural or Artificial Opening (ICD-10-PCS; 2025-07-09)
PROC: 0DNW0ZZ Release Peritoneum, Open Approach (ICD-10-PCS; 2025-07-11)
PROC: 0DBW0ZZ Excision of Peritoneum, Open Approach (ICD-10-PCS; 2025-07-11)
PROC: 0DBU0ZZ Excision of Omentum, Open Approach (ICD-10-PCS; 2025-07-11)
PROC: 0DBN0ZZ Excision of Sigmoid Colon, Open Approach (ICD-10-PCS; 2025-07-11)
PROC: 0FB00ZZ Excision of Liver, Open Approach (ICD-10-PCS; 2025-07-11)
PROC: 0UT60ZZ Resection of Left Fallopian Tube, Open Approach (ICD-10-PCS; 2025-07-11)
PROC: 0WCG0ZZ Extirpation of Matter from Peritoneal Cavity, Open Approach (ICD-10-PCS; 2025-07-11)
PROC: 30233N1 Transfusion of Nonautologous Red Blood Cells into Peripheral Vein, Percutaneous Approach (ICD-10-PCS; 2025-07-11)
PROC: 0UT10ZZ Resection of Left Ovary, Open Approach (ICD-10-PCS; principal; 2025-07-11 18:00)
PROC: BW21YZZ Computerized Tomography (CT Scan) of Abdomen and Pelvis using Other Contrast (ICD-10-PCS; 2025-07-18)
PROC: 05HY33Z Insertion of Infusion Device into Upper Vein, Percutaneous Approach (ICD-10-PCS; 2025-07-18)
PROC: 30243N1 Transfusion of Nonautologous Red Blood Cells into Central Vein, Percutaneous Approach (ICD-10-PCS; 2025-07-18)
PROC: 0D9670Z Drainage of Stomach with Drainage Device, Via Natural or Artificial Opening (ICD-10-PCS; 2025-07-18)
PROC: B54MZZZ Ultrasonography of Right Upper Extremity Veins (ICD-10-PCS; 2025-07-20)
PROC: 0DJ08ZZ Inspection of Upper Intestinal Tract, Via Natural or Artificial Opening Endoscopic (ICD-10-PCS; 2025-07-21)
PROC: 4A12X4Z Monitoring of Cardiac Electrical Activity, External Approach (ICD-10-PCS; 2025-07-25)
PROC: BW21YZZ Computerized Tomography (CT Scan) of Abdomen and Pelvis using Other Contrast (ICD-10-PCS; 2025-07-27)
PROC: BW21YZZ Computerized Tomography (CT Scan) of Abdomen and Pelvis using Other Contrast (ICD-10-PCS; 2025-07-28)
PROC: 0W9G30Z Drainage of Peritoneal Cavity with Drainage Device, Percutaneous Approach (ICD-10-PCS; 2025-08-03)
PROC: 0W9F30Z Drainage of Abdominal Wall with Drainage Device, Percutaneous Approach (ICD-10-PCS; 2025-08-03)
PROC: B020ZZZ Computerized Tomography (CT Scan) of Brain (ICD-10-PCS; 2025-08-05)
PROC: 0BH18EZ Insertion of Endotracheal Airway into Trachea, Via Natural or Artificial Opening Endoscopic (ICD-10-PCS; 2025-08-08)
DX: D39.12 Neoplasm of uncertain behavior of left ovary (principal); K65.1 Peritoneal abscess; K75.0 Abscess of liver; N13.0 Hydronephrosis with ureteropelvic junction obstruction; B37.49 Other urogenital candidiasis; E87.0 Hyperosmolality and hypernatremia; D62 Acute posthemorrhagic anemia; K92.1 Melena; K92.0 Hematemesis; N99.841 Postprocedural hematoma of a genitourinary system organ or structure following other procedure; J90 Pleural effusion, not elsewhere classified; E87.3 Alkalosis; N17.9 Acute kidney failure, unspecified; I46.9 Cardiac arrest, cause unspecified; D73.3 Abscess of spleen; K25.9 Gastric ulcer, unspecified as acute or chronic, without hemorrhage or perforation; E87.5 Hyperkalemia; K66.0 Peritoneal adhesions (postprocedural) (postinfection); N83.292 Other ovarian cyst, left side; R19.00 Intra-abdominal and pelvic swelling, mass and lump, unspecified site; D72.825 Bandemia; E88.09 Other disorders of plasma-protein metabolism, not elsewhere classified; R00.0 Tachycardia, unspecified; N73.8 Other specified female pelvic inflammatory diseases; D64.89 Other specified anemias; D69.6 Thrombocytopenia, unspecified; K20.80 Other esophagitis without bleeding; K44.9 Diaphragmatic hernia without obstruction or gangrene; K31.89 Other diseases of stomach and duodenum; D32.0 Benign neoplasm of cerebral meninges; F17.210 Nicotine dependence, cigarettes, uncomplicated; B96.20 Unspecified Escherichia coli [E. coli] as the cause of diseases classified elsewhere